=== PATIENT | male | born 1975 | race Caucasian/White ===

== ENCOUNTER 2018-04-22 04:45 | Emergency (ER) | payer SELFPAY ==
[~2018-04-22] VITALS: Ht 177.8 cm; Wt 81.6 kg
[~2018-04-22 04:45] MED LIST: AMOX-358 PO; DICL50TA4 PO; HYDR-4226 PO; OMEP-10 PO; ST.1POWD MC; SULF1TAB35 PO
[2018-04-22] MEDS ORDERED: ASPIRIN 81 MG CHEW (CHILDREN'S ASA) PO ONE (05:00)
[2018-04-22] MEDS ORDERED: NITROGLYCERIN 0.4 MG SL TABS BTL 25'S SL PRN (05:00)
[2018-04-22 05:02] LABS: BASOPHILS % (AUTO) 0 % (0-10); EOSINOPHILS # (AUTO) 0.1 10^3/uL (0.0-0.3); EOSINOPHILS % (AUTO) 1 % (0-10); HEMATOCRIT 51 % (40-54); HEMOGLOBIN 18.7 G/DL (13.3-17.7); LYMPHOCYTES # (AUTO) 3.7 X 10^3 (1.0-4.0); LYMPHOCYTES % (AUTO) 42 % (12-44); MEAN CORPUSCULAR HEMOGLOBIN 33 PG (25-34); MEAN CORPUSCULAR HGB CONC 37 G/DL (32-36); MEAN CORPUSCULAR VOLUME 90 FL (80-99); MEAN PLATELET VOLUME 11.1 FL (7.4-10.4); MONOCYTES # (AUTO) 0.7 X 10^3 (0.0-1.0); MONOCYTES % (AUTO) 8 % (0-12); NEUTROPHILS # (AUTO) 4.3 X 10^3 (1.8-7.8); NEUTROPHILS % (AUTO) 49 % (42-75); PLATELET COUNT 131 10^3/uL (130-400); RED BLOOD COUNT 5.66 10^6/uL (4.35-5.85); RED CELL DISTRIBUTION WIDTH 12.7 % (10.0-14.5); WHITE BLOOD COUNT 8.7 10^3/uL (4.3-11.0)
--- NOTE | 2018-04-22 05:04 | ED Cardiac General ---
History of Present Illness General Chief Complaint: Chest Pain Stated Complaint: CP,SOB Source: patient History of Present Illness Date Seen by Provider: Apr 22, 2018 Time Seen by Provider: 04:46 Initial Comments PT ARRIVES VIA POV FROM HOME C/O CHEST PAIN / LEFT LOWER RIB PAIN --BEGAN IMMEDIATELY PRIOR TO ARRIVAL AND CAME STRAIGHT HERE STATES PAIN IS GONE NOW C/O HEART "FLUTTERING" FOR THE LAST 2 DAYS--STATES IT IS "CONSTANT EVERY 2 BEATS " +SHORTNESS OF BREATH--BEGAN ON ARRIVAL TO ER C/O LIGHTHEADED YESTERDAY BUT NOT NOW NO SWEATS NO SWELLING IN LEGS/ FEET OR PAIN IN CALVES NO NAUSEA/VOMITING NO FEVER, URI SYMPTOMS, NO COUGH OR RECENT ILLNESS NO RECENT TRAVEL/PROLONGED SITTING, ETC. NO HISTORY OF SIMILAR NOTHING WORSENS OR IMPROVES SYMPTOMS PT DRINKS HEAVILY ON REGULAR BASIS--HAS HAD 4 DRINKS TONIGHT. STATES AT TIMES HE DRINKS 20 BEERS A DAY PLUS VODKA. SMOKES 1/2 PPD CIGARETTES, PLUS THC, PCP: DR. BELLAMY IN PAST, BUT HAS NOT SEEN ANY DR IN OVER 2 YEARS. Allergies and Home Medications Allergies Coded Allergies: No Allergy Information Available (Unverified , 04/22/18) No Known Drug Allergies (Unverified , 10/08/13) Home Medications Amoxicillin/Potassium Clav 1 Each Tablet, 1 EACH PO BID Prescribed by: ALLYSON SCHULTZ on 12/15/15 1600 Hydrocodone/Acetaminophen 1 Each Tablet, 1 EACH PO Q6H PRN for PAIN Do not fill unless Augmentin is also filled Prescribed by: ALLYSON SCHULTZ on 12/15/15 1600 Omeprazole 20 Mg Capsule., 20 MG PO DAILY@07, (Reported) Violetta's Wort 1 Gm Powder, 1 GM MC DAILY, (Reported) Sulfamethoxazole/Trimethoprim 1 Each Tablet, 1 EACH PO BID Prescribed by: ALLYSON SCHULTZ on 12/16/15 1704 Patient Home Medication List Home Medication List Reviewed: Yes Review of Systems Review of Systems Constitutional: see HPI; No diaphoresis; dizziness EENTM: No Symptoms Reported Respiratory: See HPI, Shortness of Air Cardiovascular: See HPI, Chest Pain; Denies Edema; Irregular Heart Rate, Lightheadedness, Palpitations; Denies Syncope Gastrointestinal: No Symptoms Reported; Denies Nausea, Denies Vomiting Genitourinary: No Symptoms Reported Musculoskeletal: no symptoms reported Skin: no symptoms reported Psychiatric/Neurological: No Symptoms Reported Endocrine: No Symptoms Reported Hematologic/Lymphatic: No Symptoms Reported Past Bzabusd-Iaewif-Jozgtw Hx Patient Social History Alcohol Use: Regular Use (UP TO 20 BEERS + VODKA DAILY) Recreational Drug Use: Yes (THC) Smoking Status: Current Everyday Smoker (1/2 PPD) Type Used: Cigarettes (1/2 PPD) Recent Foreign Travel: No Contact w/Someone Who Travel: No Immunizations Up To Date Tetanus Booster (TDap): Unknown Seasonal Allergies Seasonal Allergies: No Past Medical History Surgeries: Yes (SURGERY ON RIGHT HAND DUE TO INFECTED WOUND) Respiratory: No Cardiac: No Neurological: No Genitourinary: No Gastrointestinal: Yes Gastroesophageal Reflux Musculoskeletal: No Endocrine: No HEENT: No Cancer: No Psychosocial: Yes Anxiety Integumentary: Yes (HAND INFECTION) Blood Disorders: No Adverse Reaction/Blood Tranf: No Physical Exam Vital Signs Vital Signs - First Documented Capillary Refill : Height, Weight, BMI Height: 6'1" Weight: 220lbs. oz. 99.816175rg; 29.02 BMI Method:Stated General Appearance: No Apparent Distress, WD/WN, Other (REEKS OF ALCOHOL) HEENT: PERRL/EOMI Neck: Normal Inspection Respiratory: Normal Breath Sounds, No Accessory Muscle Use, No Respiratory Distress Cardiovascular: No Edema, No JVD, No Murmur, Normal Peripheral Pulses, Tachycardia (120) Gastrointestinal: Normal Bowel Sounds, No Organomegaly, No Pulsatile Mass, Non Tender, Soft Extremity: Normal Capillary Refill, Normal Inspection, Normal Range of Motion, Non Tender, No Calf Tenderness, No Pedal Edema Neurologic/Psychiatric: Alert, Oriented x3, No Motor/Sensory Deficits, Normal 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 ) Procedures/Interventions Suture Size: 4-0 Progress/Results/Core Measures Results/Orders Lab Results Laboratory Tests Test 04/22/18 04:52 04/22/18 07:00 Range/Units White Blood Count 8.7 4.3-11.0 10^3/uL Red Blood Count 5.66 4.35-5.85 10^6/uL Hemoglobin 18.7 H 13.3-17.7 G/DL Hematocrit 51 40-54 % Mean Corpuscular Volume 90 80-99 FL Mean Corpuscular Hemoglobin 33 25-34 PG Mean Corpuscular Hemoglobin Concent 37 H 32-36 G/DL Red Cell Distribution Width 12.7 10.0-14.5 % Platelet Count 131 130-400 10^3/uL Mean Platelet Volume 11.1 H 7.4-10.4 FL Neutrophils (%) (Auto) 49 42-75 % Lymphocytes (%) (Auto) 42 12-44 % Monocytes (%) (Auto) 8 0-12 % Eosinophils (%) (Auto) 1 0-10 % Basophils (%) (Auto) 0 0-10 % Neutrophils # (Auto) 4.3 1.8-7.8 X 10^3 Lymphocytes # (Auto) 3.7 1.0-4.0 X 10^3 Monocytes # (Auto) 0.7 0.0-1.0 X 10^3 Eosinophils # (Auto) 0.1 0.0-0.3 10^3/uL Basophils # (Auto) 0.0 0.0-0.1 10^3/uL Prothrombin Time 13.7 12.2-14.7 SEC INR Comment 1.1 0.8-1.4 Activated Partial Thromboplast Time 33 24-35 SEC Sodium Level 136 135-145 MMOL/L Potassium Level 3.3 L 3.6-5.0 MMOL/L Chloride Level 99 98-107 MMOL/L Carbon Dioxide Level 24 21-32 MMOL/L Anion Gap 13 5-14 MMOL/L Blood Urea Nitrogen 5 L 7-18 MG/DL Creatinine 0.90 0.60-1.30 MG/DL Estimat Glomerular Filtration Rate > 60 BUN/Creatinine Ratio 6 Glucose Level 271 H 70-105 MG/DL Calcium Level 9.7 8.5-10.1 MG/DL Corrected Calcium 9.5 8.5-10.1 MG/DL Magnesium Level 2.4 1.8-2.4 MG/DL Total Bilirubin 0.9 0.1-1.0 MG/DL Aspartate Amino Transf (AST/SGOT) 54 H 5-34 U/L Alanine Aminotransferase (ALT/SGPT) 48 0-55 U/L Alkaline Phosphatase 89 40-136 U/L Total Creatine Kinase 82 30-200 U/L Creatine Kinase MB 0.8 <6.6 NG/ML Myoglobin 39.8 10.0-92.0 NG/ML Troponin I < 0.30 <0.30 NG/ML B-Type Natriuretic Peptide < 10.0 <100.0 PG/ML Total Protein 8.7 H 6.4-8.2 GM/DL Albumin 4.3 3.2-4.5 GM/DL Amylase Level 48 25-125 U/L Lipase 54 8-78 U/L TSH [place] Testing 1.43 0.35-4.94 UIU/ML Serum Alcohol 108 H <10 MG/DL Urine Color YELLOW Urine Clarity CLEAR Urine pH 7 5-9 Urine Specific [place] 1.005 L 1.016-1.022 Urine Protein 1+ H NEGATIVE Urine Glucose (UA) 4+ H NEGATIVE Urine Ketones NEGATIVE NEGATIVE Urine Nitrite NEGATIVE NEGATIVE Urine Bilirubin NEGATIVE NEGATIVE Urine Urobilinogen 4 H NORMAL MG/DL Urine Leukocyte Esterase NEGATIVE NEGATIVE Urine RBC (Auto) NEGATIVE NEGATIVE Urine RBC NONE /HPF Urine WBC NONE /HPF Urine Squamous Epithelial Cells 0-2 /HPF Urine Crystals NONE /LPF Urine Bacteria NEGATIVE /HPF Urine Casts NONE /LPF Urine Mucus NEGATIVE /LPF Urine Culture Indicated NO Urine Opiates Screen NEGATIVE NEGATIVE Urine Oxycodone Screen NEGATIVE NEGATIVE Urine Methadone Screen NEGATIVE NEGATIVE Urine Propoxyphene Screen NEGATIVE NEGATIVE Urine Barbiturates Screen NEGATIVE NEGATIVE Ur Tricyclic Antidepressants Screen NEGATIVE NEGATIVE Urine Phencyclidine Screen NEGATIVE NEGATIVE Urine Amphetamines Screen NEGATIVE NEGATIVE Urine Methamphetamines Screen NEGATIVE NEGATIVE Urine Benzodiazepines Screen NEGATIVE NEGATIVE Urine Cocaine Screen NEGATIVE NEGATIVE Urine Cannabinoids Screen NEGATIVE NEGATIVE My Orders Orders - KRYSTYNA HINDS DO Aspirin Chewable Tablet (Baby Aspirin Ch (04/22/18 05:00) Nitroglycerin 0.4 Mg Btl 25's (Nitrostat (04/22/18 05:00) Cbc With Automated Diff (04/22/18 04:46) Magnesium (04/22/18 04:46) Chest 1 View, Ap/Pa Only (04/22/18 04:46) Ekg Tracing (04/22/18 04:46) Cardiac Profile 1 (04/22/18 04:46) Comprehensive Metabolic Panel (04/22/18 04:46) Myoglobin Serum (04/22/18 04:46) Protime With Inr (04/22/18 04:46) Partial Thromboplastin Time (04/22/18 04:46) O2 (04/22/18 04:46) Monitor-Rhythm Ecg Trace Only (04/22/18 04:46) Lipid Panel (04/23/18 06:00) Saline Lock/Iv-Start (04/22/18 04:46) Creatine Kinase (04/22/18 04:46) Creatine Kinase Mb (04/22/18 04:46) Lipase (04/22/18 04:46) Amylase (04/22/18 04:46) BNP (04/22/18 04:46) Alcohol (04/22/18 04:57) Drug Screen Stat (Urine) (04/22/18 04:57) Thyroid Analyzer (04/22/18 04:57) Ua Culture If Indicated (04/22/18 04:57) I-Stat Bedside Testing (04/22/18 05:06) Ct Angio Chest W (04/22/18 05:26) Iohexol Injection (Omnipaque 350 Mg/Ml 1 (04/22/18 05:45) Contrast Received (Contrast Received) (04/22/18 05:45) Ns (Ivpb) (Sodium Chloride 0.9%) (04/22/18 05:45) Ondansetron Injection (Zofran Injectio (04/22/18 06:00) Potassium Chloride (Tablet) (Klor Con Ta (04/22/18 06:00) Saline Lock/Iv-Start (04/22/18 05:50) Ns Iv 1000 Ml (Sodium Chloride 0.9%) (04/22/18 05:50) Medications Given in ED Current Medications Medications Dose Ordered Sig/Yifan Route Start Time Stop Time Status Last Admin Dose Admin Aspirin 324 mg ONCE ONCE PO 04/22/18 05:00 04/22/18 05:01 DC 04/22/18 04:55 324 MG Iohexol 125 ml ONCE ONCE IV 04/22/18 05:45 04/22/18 05:46 DC 04/22/18 05:40 125 ML Ondansetron HCl 4 mg ONCE ONCE IVP 04/22/18 06:00 04/22/18 06:09 DC 04/22/18 06:08 4 MG Potassium Chloride 20 meq ONCE ONCE PO 04/22/18 06:00 04/22/18 06:09 DC 04/22/18 06:09 20 MEQ Sodium Chloride 250 ml ONCE ONCE IV 04/22/18 05:45 04/22/18 05:46 DC 04/22/18 05:40 80 ML Sodium Chloride 1,000 ml @ 0 mls/hr Q0M ONCE IV 04/22/18 05:50 04/22/18 06:09 DC 04/22/18 06:08 1,000 MLS/HR Vital Signs/I&O 04/22/18 04/22/18 04/22/18 04:45 04:45 04:45 Temp 98.4 Pulse 120 Resp 20 B/P (MAP) 180/100 (126) Pulse Ox 99 100 O2 Delivery Nasal Cannula Room Air O2 Flow Rate 2.00 Progress Progress Note : Progress Note C/O NAUSEA ON RETURN FROM CT AND PT ANXIOUS--GIVEN ZOFRAN NO CHEST PAIN DURING ENTIRE ER STAY HEART RATE AND BP DOWN WITHOUT TREATMENT NO C/O "FLUTTERING" AT DISMISSAL DISCUSSED THE IMPORTANCE OF FOLLOW UP WITH PCP THIS WEEK FOR FURTHER EVALUATION Initial ECG Impression Date: Apr 22, 2018 Initial ECG Impression Time: 04:51 Initial ECG Rate: 113 Initial ECG Rhythm: S.Tach (PVC) Initial ECG Comparisson: No Previous ECG Available Diagnostic Imaging Comments CXR--NO ACUTE PROCESS, PENDING RADIOLOGIST REVIEW CT CHEST ANGIOGRAM--NO P.E. OR ACUTE PROCESS, OLD/HEALED RIB FRACTURES PER [facility] VIA FAX @ 0501 Reviewed: Reviewed by Me Departure Impression Primary Impression: BRIEF CHEST PAIN Additional Impressions: Sinus tachycardia Hypertension Hyperglycemia Alcohol abuse Smoker Disposition: 01 HOME, SELF-CARE Condition: Improved Departure-Patient Inst. Referrals: SEYMOUR BELLAMY MD (PCP/Family) Primary Care Physician Patient Instructions: Alcohol Abuse and Alcoholism (DC), Chest Pain (DC), Controlling Your Blood Pressure Through Lifestyle, DASH Diet, Heart Healthy Diet , High Blood Pressure (DC), Hyperglycemia, Adult (DC), Quitting Smoking for Teens and Young Adults, Sinus Tachycardia (DC) Add. Discharge Instructions: EQUAL AMOUNTS OF WATER AND GATORADE NO ALCOHOL NO SMOKING FOLLOW UP WITH DR. BELLAMY THIS WEEK FOR FURTHER CARE RETURN TO ER IF WORSE All discharge instructions reviewed with patient and/or family. Voiced understanding. KRYSTYNA HINDS DO Apr 22, 2018 05:03
[2018-04-22 05:13] LABS: INR 1.1 (0.8-1.4); PROTHROMBIN TIME PATIENT 13.7 SEC (12.2-14.7)
[2018-04-22 05:23] LABS: ALANINE AMINOTRANSFERASE 48 U/L (0-55); ALBUMIN 4.3 GM/DL (3.2-4.5); ALKALINE PHOSPHATASE 89 U/L (40-136); AMYLASE 48 U/L (25-125); BILIRUBIN,TOTAL 0.9 MG/DL (0.1-1.0); BUN/CREATININE RATIO 6; CALCIUM 9.7 MG/DL (8.5-10.1); CARBON DIOXIDE 24 MMOL/L (21-32); CHLORIDE 99 MMOL/L (98-107); CREATINE KINASE 82 U/L (30-200); GFR ESTIMATED > 60; GLUCOSE 271 MG/DL (70-105); LIPASE 54 U/L (8-78); MAGNESIUM 2.4 MG/DL (1.8-2.4); POTASSIUM 3.3 MMOL/L (3.6-5.0); SODIUM 136 MMOL/L (135-145); TOTAL PROTEIN 8.7 GM/DL (6.4-8.2)
[2018-04-22 05:32] LABS: CREATINE KINASE MB 0.8 NG/ML (<6.6); MYOGLOBIN SERUM 39.8 NG/ML (10.0-92.0)
[2018-04-22 05:43] LABS: TSH (THYROID ANALYZER) 1.43 UIU/ML (0.35-4.94)
[2018-04-22] MEDS ORDERED: NS 250 ML (IVPB) BAG IV ONE (05:45)
[2018-04-22] MEDS ORDERED: RECEIVED CONTRAST (Hold Metformin) IV SCH (05:45)
[2018-04-22] MEDS ORDERED: IOHEXOL 350 MG/ML 150 ML (OMNIPAQUE 350) VIAL IV ONE (05:45)
[2018-04-22] MEDS ORDERED: NS IV 1000 ML 1,000 ML IV ONE (05:50)
[2018-04-22] MEDS ORDERED: KCL 10 MEQ TAB (MICRO K) PO ONE (06:00)
[2018-04-22] MEDS ORDERED: ONDANSETRON 4 MG/2 ML (SDV) Z0FRAN IVP ONE (06:00)
--- NOTE | 2018-04-22 06:39 | Diagnostic Imaging Report ---
PROCEDURE: CT angiography of the chest with contrast. TECHNIQUE: Multiple contiguous axial images were obtained through the chest after uneventful bolus administration of intravenous contrast. 2D reconstructed CTA MIP acquisitions were also performed. INDICATION: Chest pain FINDINGS: There is suboptimal opacification of the intraluminal pulmonary arterial branches. No appreciable PE is found, however, the peripheral branches are poorly visualized. Heart size and configuration normal. The aorta is patent and nonaneurysmal. Lungs clear. No focal consolidation. There is some scattered calcified benign granuloma. No suspicious lung mass. IMPRESSION: No evidence for PE although peripheral branch opacification is poor. Benign granulomatous disease. No acute appearing abnormality. Dictated by: Dictated on workstation # [id number]
[2018-04-22 07:16] LABS: BILIRUBIN,URINE NEGATIVE (NEGATIVE); CLARITY,URINE CLEAR; COLOR,URINE YELLOW; GLUCOSE, URINE (UA) 4+ (NEGATIVE); KETONES,URINE NEGATIVE (NEGATIVE); LEUKOCYTE ESTERASE ,URINE NEGATIVE (NEGATIVE); NITRITE,URINE NEGATIVE (NEGATIVE); PH,URINE 7 (5-9); PROTEIN,URINE 1+ (NEGATIVE); UROBILINOGEN,URINE 4 MG/DL (NORMAL)
[2018-04-22 07:28] LABS: AMPHETAMINE SCREEN, URINE NEGATIVE (NEGATIVE); BACTERIA,URINE NEGATIVE /HPF; BARBITURATE SCREEN URINE NEGATIVE (NEGATIVE); BENZODIAZEPINES SCREEN URINE NEGATIVE (NEGATIVE); CANNABINOID SCREEN, URINE NEGATIVE (NEGATIVE); COCAINE SCREEN URINE NEGATIVE (NEGATIVE); METHADONE STAT NEGATIVE (NEGATIVE); METHAMPHETAMINE SCREEN URINE S NEGATIVE (NEGATIVE); OPIATE SCREEN URINE NEGATIVE (NEGATIVE); OXYCODONE STAT NEGATIVE (NEGATIVE); PROPOXYPHENE STAT NEGATIVE (NEGATIVE); SQUAMOUS EPITHELIAL CELL,UR 0-2 /HPF; TRICYCLIC ANTIDEPRESSANTS SCRE NEGATIVE (NEGATIVE)
[2018-04-22 07:42] VITALS: BP 138/92
--- NOTE | 2018-04-22 07:42 | Diagnostic Imaging Report ---
INDICATION: Shortness of breath COMPARISON: 10/10/2013 FINDINGS: Single view of the chest demonstrates clear lungs bilaterally. The heart is normal. There is no pneumothorax. The osseous structures normal. IMPRESSION: Negative chest Dictated by: Dictated on workstation # [id number]
== END 2018-04-22 07:42 | disposition home or self-care (01) ==
LOC: EDUNIT# 04:45 → ER 04:46
DX: R07.81 Pleurodynia (principal); R00.0 Tachycardia, unspecified; I10 Essential (primary) hypertension; R73.9 Hyperglycemia, unspecified; K21.9 Gastro-esophageal reflux disease without esophagitis; F41.9 Anxiety disorder, unspecified; F12.10 Cannabis abuse, uncomplicated; F10.10 Alcohol abuse, uncomplicated; F17.210 Nicotine dependence, cigarettes, uncomplicated
CPT/HCPCS: 36415; 71045; 71275; 80053; 80306; 80320; 81000; 82150; 82550; 82553; 83690; 83735; 83874; 83880; 84443; 84484; 85025; 85610; 85730; 93005; 93041

== ENCOUNTER 2019-04-01 00:22 | Emergency (ER) | payer SELFPAY ==
[~2019-04-01] VITALS: Ht 178 cm; Wt 81.6 kg
--- NOTE | 2019-04-01 00:46 | NUR ---
pt to rm 10 c/o right distal/lateral forearm pain after falling on rock approx. [id number] 03/31/19. pt demanding xray of arm, cursing at e.d. staff. pt informed of approx. wait time to see e.d. provider. ice pack applied to right forearm. no obvious deformity noted.
--- NOTE | 2019-04-01 01:10 | NUR ---
pt coming out to [place] for e.d. dr. alfredo at staff.
--- NOTE | 2019-04-01 01:34 | ED Upper Extremity ---
General Chief Complaint: Upper Extremity Stated Complaint: FELL/ RT ARM PAIN Nursing Triage Note: right arm pain s/p fall Nursing Sepsis Screen: No Definite Risk Source: patient, family Exam Limitations: no limitations History of Present Illness Date Seen by Provider: Apr 01, 2019 Time Seen by Provider: 01:22 Initial Comments Patient presents to ER by private conveyance with chief complaint that just prior to arrival he was walking around fell forward onto some concrete his right forearm extended and landed on his right lateral distal forearm. He has swelling disability and pain there. In the past he had a large injury to his right dorsal hand and became infected that has long since healed. No other previous fracture or injury to his wrist or elbow. No pain or lack of range of motion to his elbow or shoulder. He says it hard for him to make a fist or extend his fingers but he has no numbness or tingling. He does not want anything for pain. He has not taken anything for pain. He says he has been drinking alcohol tonight. Allergies and Home Medications Allergies Coded Allergies: No Allergy Information Available (Unverified , 04/22/18) No Known Drug Allergies (Unverified , 10/08/13) Home Medications No Active Prescriptions or Reported Meds Patient Home Medication List Home Medication List Reviewed: Yes Review of Systems Constitutional: No chills, No fever EENTM: No ear discharge, No hearing loss Respiratory: No cough, No hemoptysis, No orthopnea Cardiovascular: No chest pain, No edema Gastrointestinal: No abdominal pain, No nausea Past Wyfttdt-Hmmopn-Uvdugq Hx Patient Social History Alcohol Use: Occasionally Uses Recreational Drug Use: No Type Used: Cigarettes 2nd Hand Smoke Exposure: Yes Recent Foreign Travel: No Contact w/Someone Who Travel: No Recent Infectious Disease Expo: No Recent Hopitalizations: No Physical Abuse: No Sexual Abuse: No Mistreated: No Fear: No Immunizations Up To Date Tetanus Booster (TDap): Unknown Seasonal Allergies Seasonal Allergies: No Past Medical History Surgeries: Yes (SURGERY ON RIGHT HAND DUE TO INFECTED WOUND) Respiratory: No Cardiac: No Neurological: No Sexually Transmitted Disease: No Genitourinary: No Gastrointestinal: Yes Gastroesophageal Reflux Musculoskeletal: No Endocrine: No HEENT: No Cancer: No Psychosocial: Yes Anxiety Integumentary: Yes (HAND INFECTION) Blood Disorders: No Adverse Reaction/Blood Tranf: No Physical Exam Vital Signs Vital Signs - First Documented 04/01/19 00:46 Temp 36.5 Pulse 115 Resp 18 B/P (MAP) 132/85 (101) Pulse Ox 96 O2 Delivery Room Air Capillary Refill : Less Than 3 Seconds Height, Weight, BMI Height: 5'10.00" Weight: 180lbs. oz. 81.167615uy; 25.00 BMI Method:Stated General Appearance: WD/WN, mild distress HEENT: PERRL/EOMI, pharynx normal Neck: full range of motion, normal inspection Cardiovascular: normal peripheral pulses, regular rate, rhythm Respiratory: no respiratory distress, no accessory muscle use Shoulder: normal inspection, non-tender, no evidence of injury, normal ROM Elbow/Forearm: normal inspection, non-tender, no evidence of injury, normal ROM, pain (, mild swelling over the distal right ulna with tenderness to palpation) Wrist: Yes normal inspection, Yes non-tender Hand: normal inspection, non-tender, Right, limited ROM, stiffness Neurologic/Psychiatric: alert, oriented x 3, other (anxious, agitated) Skin: ecchymosis (ulnar right forearm distal) Procedures/Interventions Suture Size: 4-0 Progress/Results/Core Measures Results/Orders My Orders Orders - MARIANNA DOBBS Forearm, Right, 2 Views (04/01/19 01:30) Vital Signs/I&O 04/01/19 00:46 Temp 36.5 Pulse 115 Resp 18 B/P (MAP) 132/85 (101) Pulse Ox 96 O2 Delivery Room Air Blood Pressure Mean: 101 POS Progress Progress Note : Time: 01:34 Progress Note The patient has declined pain meds but we gave him an ice pack and will get an x-ray of his right forearm. Diagnostic Imaging Diagonstic Imaging: Xray Plain Films/CT/US/NM/MRI: forearm (r) Comments Mildly displaced right mid diaphysis ulnar fracture. Reviewed: Reviewed by Me Departure Impression Primary Impression: Fracture, ulna, shaft Qualified Codes: S52.221A - Displaced transverse fracture of shaft of right ulna, initial encounter for closed fracture Additional Impression: Fall Qualified Codes: W19.XXXA - Unspecified fall, initial encounter Disposition: 01 HOME, SELF-CARE Condition: Stable Departure-Patient Inst. Decision time for Depature: 02:26 Referrals: HUNG OSWALD MICHAEL R MD (PCP) Primary Care Physician Patient Instructions: Forearm Fracture (DC) Add. Discharge Instructions: Ice applied to the forearm 20 minutes every 4 hours for the first 2-3 days. Keep the splint on except to bathe. Tylenol 650 mg every 8 hours as needed for pain. Ibuprofen 800 mg every 8 hours as needed for pain. One tablet of hydrocodone every 6 hours as needed for breakthrough pain. It will cause drowsiness and constipation. MiraLAX is recommended. Call Dr. Oswald, orthopedics and request follow-up appointment in the next week. All discharge instructions reviewed with patient and/or family. Voiced understanding. Scripts Hydrocodone Bit/Acetaminophen (Hydrocodone/Acetaminophen 5/325mg Tablet) 1 Tab Tab 1 EACH PO Q4-6HR PRN for PAIN-MODERATE MDD 10, #14 TAB 0 Refills Prov: MARIANNA DOBBS 04/01/19 Work/School Note: Work Release Form Date Seen in the Emergency Department: Apr 01, 2019 Return to Work: Apr 02, 2019 Restrictions: Need Release from Doctor Other Restrictions Listed Below: No lift, push or pull with right arm. Do not soil splint. MARIANNA DOBBS Apr 01, 2019 01:34 POS
[2019-04-01] MEDS ORDERED: ACHD5005 PO (02:23)
[2019-04-01 02:50] VITALS: BP 128/80
--- NOTE | 2019-04-01 06:45 | Diagnostic Imaging Report ---
INDICATION: Fall with right forearm injury AP and lateral views of the right forearm reveal slightly displaced fracture through the distal diaphysis of right ulna. No other definite fracture or malalignment is identified. There is no radiopaque foreign body. IMPRESSION: Mildly displaced transverse fracture through the distal ulnar shaft. Dictated by: Dictated on workstation # [id number]
== END 2019-04-01 02:58 | disposition home or self-care (01) ==
LOC: EDUNIT# 00:22 → ER 00:25
DX: S52.221A Displaced transverse fracture of shaft of right ulna, initial encounter for closed fracture (principal); F41.9 Anxiety disorder, unspecified; K21.9 Gastro-esophageal reflux disease without esophagitis; Z77.22 Contact with and (suspected) exposure to environmental tobacco smoke (acute) (chronic); W18.39XA Other fall on same level, initial encounter
CPT/HCPCS: 29105; 73090

== ENCOUNTER 2020-01-06 17:49 | Emergency (ER) | payer SELFPAY ==
[~2020-01-06] VITALS: Ht 185 cm; Wt 91.0 kg
[~2020-01-06 17:49] MED LIST changes: +ACHD5005 PO
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
[2020-01-06 19:20] VITALS: BP 190/92
== END 2020-01-06 19:32 | disposition home or self-care (01) ==
LOC: EDUNIT# 17:49 → ER 17:51
DX: S62.92XA Unspecified fracture of left hand, initial encounter for closed fracture (principal); S16.1XXA Strain of muscle, fascia and tendon at neck level, initial encounter; Z77.22 Contact with and (suspected) exposure to environmental tobacco smoke (acute) (chronic); V49.50XA Passenger injured in collision with unspecified motor vehicles in traffic accident, initial encounter
CPT/HCPCS: 71046; 72040; 72100; 73130; 99283

== ENCOUNTER 2021-11-01 07:45 | Emergency (ER) | payer SELFPAY ==
[~2021-11-01] VITALS: Ht 185 cm; Wt 100.0 kg
[~2021-11-01 07:45] MED LIST changes: -SULF1TAB35 PO; +SULF1TAB38 PO
[2021-11-01] MEDS ORDERED: PRED10TA22 PO (08:52)
--- NOTE | 2021-11-01 08:52 | ED Upper Extremity ---
General Chief Complaint: Upper Extremity Stated Complaint: RIGHT ARM PAIN Nursing Triage Note: PT STATES PAIN IN RT ELBOW FOR A FEW DAYS, THIS MORNING WORSE AND RADIATING UP INTO NECK AND TO LT SHOULDER, RT HAND KEEP FALLING ASLEEP. Source: patient Exam Limitations: no limitations History of Present Illness Date Seen by Provider: Nov 01, 2021 Time Seen by Provider: 08:40 Onset: last week Severity: moderate Pain/Injury Location: right elbow Allergies and Home Medications Allergies Coded Allergies: No Allergy Information Available (Unverified , 04/22/18) No Known Drug Allergies (Unverified , 10/08/13) Patient Home Medication List No Active Prescriptions or Reported Meds Past Mooqcvb-Vfcdyo-Wmiwbx Hx Patient Social History Tobacco Use?: Yes Smoking Status: Former Smoker Use of E-Cig and/or Vaping dev: Yes E-Cig or Vaping type used: Nicotine Substance use?: Yes Substance type: Marijuana Alcohol Use?: Yes Alcohol type: Beer Alcohol Frequency: Once in a while Immunizations Up To Date Tetanus Booster (TDap): Unknown Seasonal Allergies Seasonal Allergies: No Past Medical History Surgery/Hospitalization HX: DENTAL, RT HAND Surgeries: Yes (SURGERY ON RIGHT HAND DUE TO INFECTED WOUND) Respiratory: No Cardiac: No Neurological: No Sexually Transmitted Disease: No Genitourinary: No Gastrointestinal: Yes Gastroesophageal Reflux Musculoskeletal: No Endocrine: No HEENT: No Cancer: No Psychosocial: Yes Anxiety Integumentary: Yes (HAND INFECTION) Blood Disorders: No Adverse Reaction/Blood Tranf: No Physical Exam Vital Signs Vital Signs - First Documented 11/01/21 08:18 Temp 36.2 Pulse 91 Resp 18 B/P (MAP) 153/92 (112) Pulse Ox 98 O2 Delivery Room Air Capillary Refill : Less Than 3 Seconds Height, Weight, BMI Height: 5'10.00" Weight: 180lbs. oz. 81.844835ka; 29.00 BMI Method:Stated Procedures/Interventions Suture Size: 4-0 Progress/Results/Core Measures Results/Orders Vital Signs/I&O 11/01/21 08:18 Temp 36.2 Pulse 91 Resp 18 B/P (MAP) 153/92 (112) Pulse Ox 98 O2 Delivery Room Air Blood Pressure Mean: 112 Departure Impression Primary Impression: Lateral epicondylitis of elbow Disposition: 01 HOME, SELF-CARE Condition: Stable Departure-Patient Inst. Decision time for Depature: 08:51 Referrals: NO,LOCAL PHYSICIAN (PCP/Family) Primary Care Physician Patient Instructions: Lateral Epicondylitis (DC) Add. Discharge Instructions: Wear the "tennis elbow" brace/sleeve daily. I have put you on a short course of steroids, take these, that may help with inflammation in your elbow. You should follow-up with an orthopedist for further evaluation and management, physical therapy will also help Avoid heavy lifting, repetitive movements of the right wrist and elbow for the next week. Return to the emergency department for reevaluation if you develop elbow swelling, redness, fever or any other emergent concerning symptoms. Scripts Prednisone (Prednisone) 10 Mg Tab.ds.pk 10 MG PO DAILY, #21 EA Take 6 tabs(60mg)daily,decrease by 1 tab(10MG)daily. Prov: BRISEIDA MUHAMMAD MD 11/01/21 Work/School Note: Work Release Form Date Seen in the Emergency Department: Nov 01, 2021 Return to Work: Nov 02, 2021 BRISEIDA MUHAMMAD MD Nov 01, 2021 08:52
[2021-11-01 08:58] VITALS: BP 162/96
== END 2021-11-01 08:58 | disposition home or self-care (01) ==
LOC: EDUNIT# 07:45 → ER 07:47
DX: M77.11 Lateral epicondylitis, right elbow (principal); F17.290 Nicotine dependence, other tobacco product, uncomplicated
CPT/HCPCS: 99281

== ENCOUNTER 2021-11-18 11:35 | Emergency (ER) | payer OTHER ==
[~2021-11-18] VITALS: Ht 185 cm; Wt 100.0 kg
[~2021-11-18 11:35] MED LIST changes: +PRED10TA22 PO
[2021-11-18 11:48] VITALS: BP 143/82
--- NOTE | 2021-11-18 12:17 | ED Lower Extremity ---
General Chief Complaint: Trauma-Non Activation Stated Complaint: BI LAT LEGS/R ARM PAIN Nursing Triage Note: fall through a ceiling Source: patient Exam Limitations: no limitations (KEVIN BARKSDALE) History of Present Illness Date Seen by Provider: Nov 18, 2021 Time Seen by Provider: 12:13 Initial Comments Patient is a 45-year-old male who presents ED with right leg pain, left hip pain, right arm pain. Patient fell through the ceiling yesterday. Patient works for [employer]. Patient was called to a leak in the ceiling at a apartment complex. Patient states he fell through the ceiling twice. Patient states he was trying to stop a water leak when his right leg went through the ceiling twice. Patient states he slipped on rafters. Patient attempted to stop the leak and fell through almost completely the second time when his left leg hyperextended caught himself on a rafter and his right leg went through the ceiling. Has a bruising swelling to the right knee and tib-fib. States he hit his right upper arm against a rafter. Denies hit his head or loss consciousness. Reports some generalized back discomfort. Patient denies hitting his head. Patient is complain of left hip pain. He states his left leg help support himself why his right leg was through the ceiling. Patient took [place] yesterday with some improvement of pain. This is a work comp injury. Patient has bruising and swelling to the right leg. Patient has been able to ambulate but reports stiffness and tightness (KEVIN BARKSDALE) Allergies and Home Medications Allergies Coded Allergies: No Allergy Information Available (Unverified , 04/22/18) No Known Drug Allergies (Unverified , 10/08/13) Patient Home Medication List Home Medication List Reviewed: Yes (KEVIN BARKSDALE) Hydrocodone/Acetaminophen (Hydrocodone-Acetamin 5-325 mg) 5 Mg-325 Mg Tablet, 1 TAB PO Q4H PRN for PAIN-MODERATE (5-7) Prescribed by: LARISA MCMANUS on 11/18/21 1420 Ibuprofen (Ibuprofen) 600 Mg Tablet, 600 MG PO Q6H PRN for PAIN-MILD Prescribed by: LARISA MCMANUS on 11/18/21 1420 Prednisone (Prednisone) 10 Mg Tab.ds.pk, 10 MG PO DAILY Prescribed by: BRISEIDA MUHAMMAD on 11/01/21 0852 Review of Systems Constitutional: No chills, No diaphoresis, No malaise, No weakness EENTM: No blurred vision, No double vision Respiratory: No cough, No dyspnea on exertion Cardiovascular: No chest pain Gastrointestinal: No abdominal pain, No diarrhea, No nausea, No vomiting Genitourinary: No discharge Musculoskeletal: back pain, joint pain, joint swelling, muscle pain, muscle stiffness Skin: change in color, other (bruising) (KEVIN BARKSDALE) Past Xmyevyv-Vmygfd-Wxoqlw Hx Patient Social History Tobacco Use?: No Use of E-Cig and/or Vaping dev: Yes E-Cig or Vaping type used: Nicotine Use of E-Cig and/or Vaping Alexis: Current Everyday User Substance use?: No Alcohol Use?: No Pt feels they are or have been: No (KEVIN BARKSDALE) Immunizations Up To Date Tetanus Booster (TDap): Unknown (KEVIN BARKSDALE) Seasonal Allergies Seasonal Allergies: No (KEVIN BARKSDALE) Past Medical History Surgery/Hospitalization HX: DENTAL, RT HAND Surgeries: Yes (SURGERY ON RIGHT HAND DUE TO INFECTED WOUND) Respiratory: No Cardiac: No Neurological: No Sexually Transmitted Disease: No Genitourinary: No Gastrointestinal: Yes Gastroesophageal Reflux Musculoskeletal: No Endocrine: No HEENT: No Cancer: No Psychosocial: Yes Anxiety Integumentary: Yes (HAND INFECTION) Blood Disorders: No Adverse Reaction/Blood Tranf: No (KEVIN BARKSDALE) Physical Exam Vital Signs Vital Signs - First Documented 11/18/21 11:48 Temp 36.9 Pulse 101 Resp 16 B/P (MAP) 143/82 (102) Pulse Ox 98 O2 Delivery Room Air (EREN VELÁZQUEZ MD) Vital Signs Capillary Refill : Less Than 3 Seconds (KEVIN BARKSDALE) Height, Weight, BMI Height: 5'10.00" Weight: 180lbs. oz. 81.380310xy; 29.00 BMI Method:Stated General Appearance: WD/WN, no apparent distress HEENT: PERRL/EOMI, normal ENT inspection, TMs normal, pharynx normal Neck: non-tender, full range of motion, supple Cardiovascular: regular rate, rhythm, no edema, no gallop, no JVD Respiratory: chest non-tender, lungs clear, normal breath sounds, no respiratory distress, no accessory muscle use Gastrointestinal: normal bowel sounds, non tender, soft Back: normal inspection, no CVA tenderness Hips: left hip pain, left hip soft tissue tenderness Legs: right leg ecchymosis, right leg pain, right leg soft tissue tenderness, right leg swelling Knees: right knee ecchymosis, right knee pain, right knee soft tissue tenderness, right knee swelling Ankles: bilateral ankle non-tender, bilateral ankle normal inspection, bilateral ankle normal range of motion Feet: bilateral foot non-tender, bilateral foot normal inspection Neurologic/Tendon: other (Tenderness to right posterior humerus without swelling bruising or redness. 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 Bruising swelling noted. X-ray left hip degenerative changes without acute fracture. Able to ambulate and walk. Not able to rule out ligament, meniscus injury to the right knee or labrum injury to the left hip. Limited exam secondary to the swelling and bruising and pain. Recommend orthopedic follow-up in 7 to 10 days for further evaluation. Would likely benefit with rest for the next week. Avoid heavy lifting, bending or running. Anti- inflammatories at home with pain medication [place] as needed for moderate pain. Return precaution were discussed with patient. (KEVIN BARKSDALE) Impression Primary Impression: Knee pain Additional Impression: Hip pain Disposition: 01 HOME, SELF-CARE Condition: Stable Departure-Patient Inst. Decision time for Depature: 14:19 (KEVIN BARKSDALE) Referrals: NO,LOCAL PHYSICIAN (PCP) Primary Care Physician SEYMOUR BELLAMY MD Patient Instructions: Knee Pain Scripts Hydrocodone/Acetaminophen (Hydrocodone-Acetamin 5-325 mg) 5 Mg-325 Mg Tablet 1 TAB PO Q4H PRN for PAIN-MODERATE (5-7), #6 TAB Prov: KEVIN BARKSDALE 11/18/21 Ibuprofen (Ibuprofen) 600 Mg Tablet 600 MG PO Q6H PRN for PAIN-MILD, #20 TAB Prov: KEVIN BARKSDALE 11/18/21 ATTENDING PHYSICIAN NOTE: I was physically present as attending physician in the emergency department during the care of this patient, but I was not directly involved in the decision making or delivery of care for this patient. (EREN VELÁZQUEZ MD) KEVIN BARKSDALE Nov 18, 2021 12:17 EREN VELÁZQUEZ MD Nov 19, 2021 20:33
--- NOTE | 2021-11-18 13:58 | Diagnostic Imaging Report ---
INDICATION: Fall, with pain. FINDINGS: Two-view left hip reveals left hip arthritis, joint space narrowing, articular sclerosis, subcortical cysts, and bulky osteophytes. No fracture or acute appearing osseous pathology, however. IMPRESSION: Advanced degenerative changes and chronic findings in the femoral head and neck, but no acute bony pathology or fracture identified. Dictated by: Dictated on workstation # [id number]
--- NOTE | 2021-11-18 13:59 | Diagnostic Imaging Report ---
Indication: Right knee injury with bruising and pain. Time of Exam: 1:31 PM 3 views of the right knee were obtained. Alignment is normal. Joint spaces are well-maintained. The articular surfaces are smooth. No fracture, dislocation or effusion is identified. IMPRESSION: No acute abnormality is detected. Dictated by: Dictated on workstation # [id number]
--- NOTE | 2021-11-18 14:00 | Diagnostic Imaging Report ---
Indication: Right leg injury. Time of Exam: 1:34 PM AP and lateral views of the right tibia and fibula were obtained. Alignment at the knee and ankle is normal. The tibia and fibula appear to be intact. No fractures are seen. Soft tissues are unremarkable. IMPRESSION: No acute abnormality is detected. Dictated by: Dictated on workstation # [id number]
--- NOTE | 2021-11-18 14:00 | Diagnostic Imaging Report ---
Indication: Right arm injury. Time of Exam: 1:27 PM 2 views of the right humerus demonstrate normal alignment at the shoulder and elbow. The humerus is intact. No fractures are seen. IMPRESSION: No acute abnormality is detected. Dictated by: Dictated on workstation # [id number]
[2021-11-18] MEDS ORDERED: IBUP-1773 PO (14:20)
[2021-11-18] MEDS ORDERED: ACHD5005 PO (14:20)
== END 2021-11-18 15:04 | disposition home or self-care (01) ==
LOC: EDUNIT# 11:35 → ER 11:40
DX: S80.11XA Contusion of right lower leg, initial encounter (principal); S80.01XA Contusion of right knee, initial encounter; M25.552 Pain in left hip; M79.621 Pain in right upper arm; F17.290 Nicotine dependence, other tobacco product, uncomplicated; Z98.890 Other specified postprocedural states; Z28.310 Unvaccinated for COVID-19; W13.2XXA Fall from, out of or through roof, initial encounter; Y92.039 Unspecified place in apartment as the place of occurrence of the external cause
CPT/HCPCS: 73060; 73502; 73562; 73590

== ENCOUNTER → 2021-11-23 | Outpatient (REF) ==
[~2021-11-23] MED LIST changes: +IBUP-1773 PO
--- NOTE | 2021-11-23 15:25 | Diagnostic Imaging Report ---
Indication: Pre-MRI screening. Time of Exam: 2:07 PM 2 views of the orbits were obtained. No definite radiopaque orbital foreign body is detected. IMPRESSION: No radiopaque orbital foreign body is identified. Dictated by: Dictated on workstation # [id number]
--- NOTE | 2021-11-23 16:01 | Diagnostic Imaging Report ---
MRI RT LOWER EXT JOINT W/O TECHNIQUE: Multiplanar, multisequence MR imaging of the right knee was performed without contrast. COMPARISON: Right knee radiographs of 11/18/2021 INDICATION: Knee pain FINDINGS: MENISCI Medial meniscus: Intact. Lateral meniscus: Intact. LIGAMENTS ACL: Intact. PCL: Intact. MCL: Intact. LCL: The lateral collateral ligamentous complex is intact. EXTENSOR MECHANISM The extensor mechanism is intact. CARTILAGE Medial compartment: Medial compartment articular cartilage is well preserved without focal high-grade chondromalacia. Lateral compartment: The lateral compartment articular cartilage is preserved without high-grade chondromalacia. Patellofemoral compartment: The patellofemoral articular cartilage is well preserved without high-grade chondromalacia. BONE No fracture, stress fracture or osteonecrosis. SOFT TISSUE No knee effusion or Cedeno's cyst. Mixed intensity material and swelling along the medial aspect of the lower leg is likely due to subcutaneous contusion and/or hematoma. IMPRESSION: 1. Subcutaneous hematoma along the medial aspect of the knee. 2. Cruciate and collateral ligaments are intact. 3. No meniscal tear. Dictated by: Dictated on workstation # [id number]
== END ==
LOC: OCC 13:53
PROVIDERS: ATTEND Nurse Practitioner Family
DX: M25.561 Pain in right knee (principal)
CPT/HCPCS: 73721

== ENCOUNTER 2021-12-14 07:48 | Outpatient (RCR) | payer OTHER | END 2021-12-19 | disposition home or self-care (01) | PROVIDERS: ATTEND Nurse Practitioner Family | DX: S80.01XD Contusion of right knee, subsequent encounter (principal); X58.XXXD Exposure to other specified factors, subsequent encounter ==

== ENCOUNTER 2023-03-13 08:36 | Emergency (ER) | payer SELFPAY ==
--- NOTE | 2023-03-13 09:21 | Diagnostic Imaging Report ---
INDICATION: Right wrist injury. 3 views of the right wrist show a tiny cortical avulsion off the cortex of the dorsal aspect of the triquetrum. Small bone fragment measures 2 mm in diameter. There is an old healed fracture of the distal ulnar shaft. IMPRESSION: Tiny cortical avulsion off the dorsal aspect of the triquetrum. This is new compared to prior exam dated 12/15/2015. Dictated by: Dictated on workstation # [id number]
--- NOTE | 2023-03-13 09:28 | ED Upper Extremity ---
General Chief Complaint: Upper Extremity Stated Complaint: FALL/RIGHT WRIST PAIN Nursing Triage Note: PT CO OF FALL ON 02/20, STATES INJURED R WRIST, WHILE WORKING THIS WEEKEND HAS HAD 2 POPING SENSATION. PT CO OF PAIN AND NUMBNESS 09/28 History of Present Illness Date Seen by Provider: Mar 13, 2023 Time Seen by Provider: 09:05 Initial Comments 47-year-old male presents with right wrist pain. Patient reports that he fell going up some steps on 02/20/2023. That while working this weekend he had 2 episodes in which he felt a "popping sensation" in his wrist. These complaints of pain in numbness in that area. Allergies and Home Medications Allergies Coded Allergies: No Known Drug Allergies (Unverified , 10/08/13) Patient Home Medication List Home Medication List Reviewed: Yes Hydrocodone/Acetaminophen (Hydrocodone-Acetamin 5-325 mg) 5 Mg-325 Mg Tablet, 1 TAB PO Q4H PRN for PAIN-MODERATE (5-7) Prescribed by: LARISA MCMANUS on 11/18/21 1420 Ibuprofen (Ibuprofen) 600 Mg Tablet, 600 MG PO Q6H PRN for PAIN-MILD Prescribed by: LARISA MCMANUS on 11/18/21 1420 Prednisone (Prednisone) 10 Mg Tab.ds.pk, 10 MG PO DAILY Prescribed by: BRISEIDA MUHAMMAD on 11/01/21 0852 Review of Systems Constitutional: see HPI EENTM: no symptoms reported Respiratory: no symptoms reported Cardiovascular: no symptoms reported Gastrointestinal: no symptoms reported Genitourinary: no symptoms reported Musculoskeletal: see HPI Skin: no symptoms reported Psychiatric/Neurological: No Symptoms Reported Past Jgimtgy-Aiuzuo-Pqbjuq Hx Patient Social History Tobacco Use?: Yes Tobacco type used: Cigarettes Smoking Status: Current Everyday Smoker Substance use?: No Alcohol Use?: Yes Alcohol type: Beer Alcohol Frequency: Once in a while Pt feels they are or have been: No Immunizations Up To Date Tetanus Booster (TDap): Unknown Seasonal Allergies Seasonal Allergies: No Past Medical History Surgery/Hospitalization HX: DENTAL, RT HAND Surgeries: Yes (SURGERY ON RIGHT HAND DUE TO INFECTED WOUND) Respiratory: No Cardiac: No Neurological: No Sexually Transmitted Disease: No Genitourinary: No Gastrointestinal: Yes Gastroesophageal Reflux Musculoskeletal: No Endocrine: No HEENT: No Cancer: No Psychosocial: Yes Anxiety Integumentary: Yes (HAND INFECTION) Blood Disorders: No Adverse Reaction/Blood Tranf: No Physical Exam Vital Signs Vital Signs - First Documented 03/13/23 08:50 Temp 36.5 Pulse 95 Resp 16 B/P (MAP) 159/84 (109) Pulse Ox 100 Capillary Refill : Less Than 3 Seconds Height, Weight, BMI Height: 5'10.00" Weight: 180lbs. oz. 81.344013yl; 29.00 BMI Method:Stated General Appearance: WD/WN, no apparent distress Cardiovascular: normal peripheral pulses Respiratory: lungs clear, normal breath sounds Shoulder: normal inspection, non-tender Elbow/Forearm: non-tender, normal ROM Wrist: Yes no evidence of injury, Yes normal ROM, Yes bone tenderness, Yes soft tissue tenderness; No swelling Neurologic/Psychiatric: alert, normal mood/affect, oriented x 3 Skin: normal color, warm/dry Procedures/Interventions Suture Size: 4-0 Progress/Results/Core Measures Results/Orders My Orders Orders - SHEY NAVARRO DO Wrist, Right, 3 Views Or More (03/13/23 09:06) Wrist-[place] (03/13/23 09:28) Vital Signs/I&O 03/13/23 03/13/23 08:50 09:46 Temp 36.5 36.5 Pulse 95 95 Resp 16 16 B/P (MAP) 159/84 (109) 159/84 Pulse Ox 100 100 Blood Pressure Mean: 109 Progress Progress Note : Progress Note Patient with small avulsion fracture noted on x-ray. Patient will be placed in a splint and recommended follow-up with bibliographic services specialist for further delmy luation. He was stable and discharged Diagnostic Imaging Diagonstic Imaging: Xray Comments Date of Exam:03/13/23 WRIST, RIGHT, 3 VIEWS OR MORE INDICATION: Right wrist injury. 3 views of the right wrist show a tiny cortical avulsion off the cortex of the dorsal aspect of the triquetrum. Small bone fragment measures 2 mm in diameter. There is an old healed fracture of the distal ulnar shaft. IMPRESSION: Tiny cortical avulsion off the dorsal aspect of the triquetrum. This is new compared to prior exam dated 12/15/2015. Departure Impression Primary Impression: Triquetral chip fracture Qualified Codes: S62.111A - Displaced fracture of triquetrum [cuneiform] bone, right wrist, initial encounter for closed fracture Disposition: HOME, SELF-CARE Condition: Stable Departure-Patient Inst. [facility]: [facility] (PCP/Family) Primary Care Physician SEYMOUR TRAMMELL MD Patient Instructions: Splint Care ED, Wrist Fracture (DC) Add. Discharge Instructions: Please wear splint until cleared by orthopedics surgery. Please follow-up with Dr. Trammell or bibliographic services specialist of your choice. Please call make an appointment today or in the morning for the follow-up. You may use Tylenol, ibuprofen, topical lidocaine with menthol as needed for discomfort. All discharge instructions reviewed with patient and/or family. Voiced understanding. SHEY NAVARRO DO Mar 13, 2023 09:28
[2023-03-13 09:46] VITALS: BP 159/84
== END 2023-03-13 09:46 | disposition home or self-care (01) ==
LOC: EDUNIT# 08:36 → ER 08:39
DX: S62.111A Displaced fracture of triquetrum [cuneiform] bone, right wrist, initial encounter for closed fracture (principal); F17.210 Nicotine dependence, cigarettes, uncomplicated; W10.9XXA Fall (on) (from) unspecified stairs and steps, initial encounter
CPT/HCPCS: 73110